=== PATIENT | female | born 1960 | race Caucasian/White ===

== ENCOUNTER 2019-10-06 06:59 | Emergency (ER) | payer OTHER ==
[~2019-10-06] VITALS: Ht 170.2 cm; Wt 72.6 kg
[2019-10-06] MEDS ORDERED: ERYTHROMYCIN E3.5 G3 OPHTHALMIC (07:32)
[2019-10-06 07:33] VITALS: BP 128/74
== END 2019-10-06 07:33 | disposition home or self-care (01) ==
LOC: M.ERS 06:59
DX: S05.02XA Injury of conjunctiva and corneal abrasion without foreign body, left eye, initial encounter (principal); Z88.2 Allergy status to sulfonamides; Z88.1 Allergy status to other antibiotic agents; Z88.6 Allergy status to analgesic agent; W50.4XXA Accidental scratch by another person, initial encounter; Y93.89 Activity, other specified; Y92.89 Other specified places as the place of occurrence of the external cause; Y99.8 Other external cause status